=== PATIENT | male | born 1995 | race Caucasian/White ===

== ENCOUNTER 2018-12-24 11:08 | Emergency (ER) | payer BC ==
[2018-12-24 12:25] LABS: Bilirubin Negative (Negative); Blood, Urine Negative (Negative); Clarity CLEAR (Clear); Glucose, Urine (Dipstick) Negative (Negative); Leukocyte Negative (Negative); Nitrite Negative (Negative); Protein, Urine (Dipstick) 30 mg/dL (Neg-Trace); Specific Gravity, Urine 1.021 (1.002-1.036); Urobilinogen 0.2 mg/dL (0.2-1.0); pH, Urine 8.5 (5.0-9.0)
[2018-12-24 12:28] LABS: Bacteria/HPF None Seen HPF (None Seen); Pathc Cast-AUWi Flag 1.01 (0-2.49); RBC/HPF 0-3 HPF (0-3); WBC/HPF 0-3 HPF (0-3)
--- NOTE | 2018-12-24 12:35 | ULT ---
SCROTAL SONOGRAM WITH DUPLEX EVALUATION: HISTORY: Testicular pain. Recent injury. FINDINGS: Right testicle measures up to 5.1 cm. Along the inferior margin is an irregular-shaped, peripheral, heterogeneous, partially hyperechoic area that measures 1.9 x 1.1 cm in diameter. It is difficult to tell if this is intrinsic to the testicle or immediately adjacent to it, with mass effect. Good col or and spectral Doppler flow within the testicle. A small amount of fluid is present within the righ t side of the scrotum. Left testicle measures up to 4.7 cm with a normal appearance. Good color and spectral Doppler flow. IMPRESSION: In the setting of right scrotal pain and recent trauma, the heterogeneous abnormality along the infer ior pole of the right testicle could represent a hematoma or other injury. A small hydrocele is also apparent. If the clinical findings do not support a hematoma to the inferior pole of the right testicle, then a neoplastic process must be considered. Either way, please consider urologic evaluation and sonograp hic followup to evaluate for resolution if this is favored to represent a posttraumatic process, clin ically. POS: [facility]MU[facility]
[2018-12-24 12:48] LABS: Hyaline Casts/LPF 0-3 HYALINE CAST LPF (0-3 Hyaline); Squamous Epithelial 0-3 HPF (0-3)
== END 2018-12-24 13:00 | disposition home or self-care (01) ==
LOC: ERS 11:08
DX: S30.22XA Contusion of scrotum and testes, initial encounter (principal); W50.0XXA Accidental hit or strike by another person, initial encounter; Y93.63 Activity, rugby
CPT/HCPCS: 76870; 81003; 81015; 93976